=== PATIENT | female | born 1970 | race Caucasian/White ===

== ENCOUNTER 2016-10-10 10:08 | Emergency (ER) | payer BC, MEDICAID ==
[2016-10-10] MEDS ORDERED: Lisinopril 10 MG Tab PO ONE (11:12)
--- NOTE | 2016-10-10 11:13 | EDM.PDOC ---
ED HISTORY OF PRESENT ILLNESS - General Chief Complaint: Cardiovascular Problem Stated Complaint: BP Time Seen by Provider: 10/10/16 10:34 Source: Reports: Patient, Family, Old records, RN notes reviewed History Limitations: Reports: No limitations - History of Present Illness INITIAL COMMENTS - FREE TEXT/NARRATIVE: 46-year-old female presents emergency department for a complaint of blood pressure problems, monitor blood pressure at home today was a systolic of over 200 she was concerned came in for further evaluation. She has been dealing with blood pressure problems with her primary care provider over the last month or so has had elevated blood pressure. Workup has been started on thyroid, CBC and BMP all within normal limits except for elevated blood sugar at 154. She's not on any medications. He did experience some palpitations today otherwise asymptomatic - Related Data Allergies/ADRs: Allergies Allergy/AdvReac Type Severity Reaction Status Date / Time amoxicillin Allergy Diarrhea Verified 10/10/16 10:22 cephalexin Allergy Rash Verified 10/10/16 10:22 Latex, Natural Rubber Allergy Itching Verified 10/10/16 10:22 Home Meds: Home Meds Norethindrone-Ethinyl Estrad [Ortho-[facility] 1-35-28 Tablet] 1 tab PO DAILY [History] Past Medical History REPA[employer]ER [employer] History: Reports: - Infectious Disease History Infectious Disease History: Reports: Chicken pox - Past Surgical History HEENT Surgical History: Reports: Oral surgery GI Surgical History: Reports: Cholecystectomy Female Surgical History: Reports: section Social & Family History - Tobacco Use Smoking Status *Q: Never Smoker - Caffeine Use Caffeine Use: Reports: Coffee - Recreational Drug Use Recreational Drug Use: No ED ROS GENERAL - Review of Systems Review Of Systems: See Below Constitutional: Reports: no symptoms HEENT: Reports: No symptoms Respiratory: Reports: No Symptoms Cardiovascular: Reports: Palpitations GI/Abdominal: Reports: No symptoms : Reports: no symptoms Musculoskeletal: Reports: no symptoms Skin: Reports: no symptoms Neurological: Reports: No Symptoms ED EXAM, GENERAL - Physical Exam Exam: See Below Exam Limited By: No limitations General Appearance: alert, WD/WN, no apparent distress Eye Exam: bilateral eye: normal inspection Head: atraumatic, normocephalic Neck: normal inspection, supple, non-tender, full range of motion Respiratory/Chest: no respiratory distress, lungs clear, normal breath sounds, no accessory muscle use Cardiovascular: regular rate, rhythm, no murmur Course - Vital Signs Last Recorded V/S: Last Vital Signs Temp 99.2 F 10/10/16 10:27 Pulse 78 10/10/16 12:20 Resp 16 10/10/16 12:20 BP 143/83 H 10/10/16 12:20 Pulse Ox 96 10/10/16 12:20 - Orders/Labs/Meds Orders: Active Orders 24 hr Category Date Time Status EKG Documentation Completion [RC] ASDIRECTED Care 10/10/16 11:11 Active EKG 12 Lead [EK] Stat Ther 10/10/16 11:10 Ordered Labs: Laboratory Tests 10/10/16 Range/Units 11:21 Urine Color Yellow Urine Appearance Clear Urine pH 6.0 (4.5-8.0) Ur Specific [place] 1.015 (1.008-1.030) Urine Protein Negative (NEGATIVE) mg/dL Urine Glucose (UA) Normal (NEGATIVE) mg/dL Urine Ketones Negative (NEGATIVE) mg/dL Urine Occult Blood Negative (NEGATIVE) Urine Nitrite Negative (NEGATIVE) Urine Bilirubin Negative (NEGATIVE) Urine Urobilinogen Normal (NORMAL) mg/dL Ur Leukocyte Esterase Negative (NEGATIVE) Urine RBC 0-5 (0-5) Urine WBC Not seen (0-5) Ur Epithelial Cells Few Amorphous Sediment Not seen Urine Bacteria Rare Urine Mucus Not seen Meds: Medications Discontinued Medications Generic Name Dose Route Start Last Admin Trade Name Freq PRN Reason Stop Dose Admin Lisinopril 10 mg 10/10/16 11:12 10/10/16 11:18 Prinivil PO 10/10/16 11:13 10 mg ONETIME ONE Administration Departure - Departure Time of Disposition: 12:23 Disposition: Home, Self-Care 01 Condition: good Clinical Impression: Hypertension Qualifiers: Hypertension type: essential hypertension Qualified Code(s): I10 - Essential ( primary) hypertension Forms: ED Department Discharge Additional Instructions: Start the lisinopril one tablet once a day, please followup with your primary care provider in the next 7-10 days for reevaluation - My Orders Last 24 Hours: My Active Orders 10/10/16 11:10 EKG 12 Lead [EK] Stat 10/10/16 11:11 EKG Documentation Completion [RC] ASDIRECTED - Assessment/Plan Last 24 Hours: My Active Orders 10/10/16 11:10 EKG 12 Lead [EK] Stat 10/10/16 11:11 EKG Documentation Completion [RC] ASDIRECTED Plan: Assessment Acuity = chronic Site and laterality = hypertension Etiology = unclear etiology Manifestations = none Location of injury = home Lab values = urinalysis, EKG and chest x-ray are within normal limits Plan She had good response to lisinopril 10 mg blood pressure dropped 20 points and one hour, her followup with her primary care in 7-10 days for reevaluation prescription written for lisinopril #30 tablets Patient was in agreement with the plan all questions were answered, they were instructed to return to the emergency department or call for worsening symptoms. This note was dictated using [employer] voice recognition software please call with any questions.
--- NOTE | 2016-10-10 11:49 | CR ---
Chest 2V HISTORY: htn COMPARISON: None FINDINGS: Lungs appear clear and normally aerated. Cardiomediastinal silhouette is within normal limits. No va scular redistribution or pleural fluid can be seen. Probably benign sclerotic changes are noted ante rior left fifth rib. Bony structures and soft tissues are unremarkable. IMPRESSION: No acute chest abnormality identified.
[2016-10-10 12:20] VITALS: BP 143/83
== END 2016-10-10 12:30 | disposition home or self-care (01) ==
LOC: JP.ED 10:08
DX: I10 Essential (primary) hypertension (principal); Z90.49 Acquired absence of other specified parts of digestive tract; Z98.890 Other specified postprocedural states; Z79.899 Other long term (current) drug therapy; Z88.1 Allergy status to other antibiotic agents; Z91.040 Latex allergy status
CPT/HCPCS: 71020; 81001; 93005; 99284; A9270

== ENCOUNTER 2020-05-07 07:08 | Day surgery (SDC) | payer MEDICAID ==
[2020-05-07] MEDS ORDERED: Midazolam 1 MG/ML 2 ML SDV ONE (07:09)
[2020-05-07] MEDS ORDERED: Propofol 200 MG/20 ML SDV ONE (07:09)
[2020-05-07] MEDS ORDERED: fentaNYL 100 MCG/2 ML SDV ONE (07:09)
[2020-05-07] MEDS ORDERED: Dextrose 5%-Lactated Ringers 1,000 ML IV SCH (07:30)
[2020-05-07 09:31] VITALS: BP 111/77; PULSE 76
--- NOTE | 2020-05-11 14:06 | OR ---
DATE OF PROCEDURE: 05/07/2020 SURGEON: Spencer Drake MD PREOPERATIVE DIAGNOSIS: Positive Cologuard examination. POSTOPERATIVE DIAGNOSES: 1. Positive Cologuard examination. 2. Normal colonoscopic examination. OPERATIVE PROCEDURE: Flexible colonoscopy. ANESTHESIA: IV sedation. INDICATIONS FOR PROCEDURE: This is a 49-year-old female presenting for initial colonoscopy. She has had a positive Cologuard examination. Of note, she does have a family history of ovarian cancer in her mother. The plan is to proceed with a colonoscopy with biopsies and/or polypectomy as indicated. Potential risks including bleeding and perforation were discussed and the patient wishes to proceed. PROCEDURE IN DETAIL: The patient was taken to the operating room and placed in a left lateral decubitus position. IV sedation was administered after which the initial digital rectal exam was performed and was unremarkable. Colonoscope was then passed into the rectum with retroflexion revealing uncomplicated hemorrhoidal columns. The scope was eventually passed to the level of the cecum. The prep was quite good with only a small amount of liquid stool present. To that level, there were no areas of diverticulosis, no areas of colitis, and no polyps or other signs of neoplasia. The scope was then withdrawn, the above findings reconfirmed, and the procedure then concluded. Given the patient's family history of ovarian cancer, our recommendation would be to repeat the colonoscopy in 5 years. Spencer Drake MD /[id number]
== END 2020-05-07 10:15 | disposition home or self-care (01) ==
LOC: JP.SDS 07:08
PROVIDERS: ATTEND Surgery
DX: R19.5 Other fecal abnormalities (principal); K64.9 Unspecified hemorrhoids; I10 Essential (primary) hypertension; E11.9 Type 2 diabetes mellitus without complications; Z80.41 Family history of malignant neoplasm of ovary
CPT/HCPCS: 45378; J2250; J2704; J3010; J7121